=== PATIENT | female | born 1970 | race African-American/Black ===

== ENCOUNTER 2020-03-27 08:51 | Inpatient (IN) ==
[2020-04-02] MEDS ORDERED: VANCOMYCIN INJ 1,000 MG in SODIUM CHLORIDE 0.9% 250 ML IV ONE (06:00)
[2020-04-02] MEDS ORDERED: ceFAZolin 1,000 MG in SYRINGE 1 EACH IV ONE (06:00)
[2020-04-02] MEDS ORDERED: ACETAMINOPHEN 500 MG TABLET PO ONE (06:32)
[2020-04-02] MEDS ORDERED: GABAPENTIN 400 MG CAPSULE PO ONE (06:32)
[2020-04-02] MEDS ORDERED: DIAZEPAM 5 MG TABLET PO ONE (06:32)
[2020-04-02] MEDS ORDERED: FAMOTIDINE 20 MG TABLET PO ONE (06:32)
[2020-04-02] MEDS ORDERED: VANCOMYCIN 1,000 MG VIAL ONE (06:47)
[2020-04-02] MEDS ORDERED: ceFAZolin 1,000 MG VIAL ONE (06:49)
[2020-04-02] MEDS ORDERED: LACTATED RINGERS 1,000 ML IV SCH (07:00)
[2020-04-02] MEDS ORDERED: PHENYLEPHRINE 1 MG/10 ML SYRINGE IV ONE ×3 (07:24→09:56)
[2020-04-02] MEDS ORDERED: LIDOCAINE 2% 5 ML VIAL ONE (07:24)
[2020-04-02] MEDS ORDERED: SUCCINYLCHOLINE 200 MG/10 ML VIAL ONE (07:24)
[2020-04-02] MEDS ORDERED: propofoL 200 MG/20 ML VIAL IV ONE (07:24)
[2020-04-02] MEDS ORDERED: ROCURONIUM 50 MG/5 ML VIAL IV ONE (07:24)
[2020-04-02] MEDS ORDERED: MIDAZOLAM 2 MG/2 ML VIAL ONE (07:25)
[2020-04-02] MEDS ORDERED: fentaNYL 250 MCG/5 ML VIAL ONE (07:25)
[2020-04-02] MEDS ORDERED: TRANEXAMIC ACID 1,000 MG/10 ML VIAL ONE (07:28)
[2020-04-02] MEDS ORDERED: ROPIVACAINE 0.5% 30 ML VIAL ONE (07:33)
[2020-04-02] MEDS ORDERED: LIDOCAINE 1% 5 ML VIAL ONE (07:33)
[2020-04-02] MEDS ORDERED: DEXAMETHASONE 4 MG/1 ML VIAL ONE (07:33)
[2020-04-02] MEDS ORDERED: fentaNYL 100 MCG/2 ML VIAL ONE (09:31)
[2020-04-02] MEDS ORDERED: LACTATED RINGERS 1,000 ML IV ONE (09:35)
[2020-04-02] MEDS ORDERED: MAGNESIUM HYDROXIDE SUSP 30 ML UDCUP PO PRN (10:38)
[2020-04-02] MEDS ORDERED: LACTULOSE 20 GM/30 ML UDCUP PO PRN (10:38)
[2020-04-02] MEDS ORDERED: diphenhydrAMINE CAP 25 MG CAPSULE PO PRN (10:38)
[2020-04-02] MEDS ORDERED: BISACODYL 10 MG SUPP RECTAL PRN (10:38)
[2020-04-02] MEDS ORDERED: PROMETHAZINE 25 MG/1 ML VIAL IM PRN (10:38)
[2020-04-02] MEDS ORDERED: HYDROmorphone 2 MG/1 ML VIAL ONE (11:03)
[2020-04-02] MEDS: HYDROmorphone 2 MG/1 ML VIAL IV PRN ×3 (11:05→11:30)
[2020-04-02] MEDS ORDERED: ONDANSETRON 4 MG/2 ML VIAL IV PRN (11:18)
[2020-04-02] MEDS ORDERED: MEPERIDINE 25 MG/1 ML VIAL ONE (12:13)
[2020-04-02] MEDS ORDERED: MEPERIDINE 25 MG/1 ML VIAL IV PRN (12:20)
[2020-04-02] MEDS: oxyCODONE/ACETAMINOPHEN 5-325 MG TABLET PO PRN ×2 (14:26→23:25)
[2020-04-02] MEDS: PHENYTOIN ER 100 MG CAPSULE PO SCH ×3 (14:28→20:50)
[2020-04-02] MEDS: MORPHINE 4 MG/1 ML VIAL IV PRN ×2 (16:13→20:58)
[2020-04-02] MEDS: ceFAZolin 2,000 MG in PREMIX 1 EACH IV SCH ×2 (16:20→23:21)
[2020-04-02] MEDS: DULoxetine 30 MG CAPSULE PO SCH (20:49)
[2020-04-02] MEDS: DOCUSATE SODIUM 100 MG CAPSULE PO SCH (20:49)
[2020-04-02] MEDS: QUEtiapine 100 MG TABLET PO SCH (20:49)
[2020-04-03] MEDS: MORPHINE 4 MG/1 ML VIAL IV PRN ×3 (01:04→14:55)
[2020-04-03] MEDS: oxyCODONE/ACETAMINOPHEN 5-325 MG TABLET PO PRN ×4 (05:16→20:02)
[2020-04-03 07:53] LABS: Basophils % 0.4 % (0.0-0.8); Eosinophils # 0.3 10*3/uL (0.0-0.87); Eosinophils % 2.5 % (0.00-10.9); Hematocrit 28.7 VOL% (35.7-47.0); Hemoglobin 9.4 GM/DL (12.0-16.0); Immature Granulocytes % 0.4 %; Immature Granulocytes Absolute 0.04 #; Lymphocytes # 3.6 10*3/uL (1.4-4.0); Lymphocytes % 32.8 % (21.3-54.2); Mean Corpuscular HGB Conc 32.8 GM/DL (32-36); Mean Corpuscular Volume 87.5 FL (87-102); Mean Platelet Volume 9.5 FL (9.6-12.0); Monocytes % 10.6 % (1.7-12.7); Neutrophils % 53.3 % (38.7-73.9); Platelet Count 246 T/CUMM (130-400); Red Blood Count 3.28 MC/CUMM (3.8-5.5); Red Cell Distribution Width 12.8 % (9.3-17.3)
[2020-04-03 08:24] LABS: Calcium 8.4 MG/DL (8.5-10.1); Osmolality,Calculated 266.2 MOS/KG (273-304)
[2020-04-03] MEDS: DOCUSATE SODIUM 100 MG CAPSULE PO SCH ×2 (08:38→20:03)
[2020-04-03] MEDS: DULoxetine 30 MG CAPSULE PO SCH ×2 (08:38→20:03)
[2020-04-03] MEDS: PHENYTOIN ER 100 MG CAPSULE PO SCH ×4 (08:38→20:01)
[2020-04-03] MEDS: QUEtiapine 100 MG TABLET PO SCH (20:02)
[2020-04-03] MEDS: FONDAPARINUX 2.5 MG/0.5 ML SYRINGE SUBCUT SCH (20:06)
[2020-04-04] MEDS: MORPHINE 4 MG/1 ML VIAL IV PRN ×2 (00:11→05:26)
[2020-04-04] MEDS: oxyCODONE/ACETAMINOPHEN 5-325 MG TABLET PO PRN ×3 (03:12→13:14)
[2020-04-04] MEDS: DOCUSATE SODIUM 100 MG CAPSULE PO SCH (09:15)
[2020-04-04] MEDS: DULoxetine 30 MG CAPSULE PO SCH (09:15)
[2020-04-04] MEDS: PHENYTOIN ER 100 MG CAPSULE PO SCH ×2 (09:15→12:57)
[2020-04-04 11:30] VITALS: BP 137/64
[2020-04-04] MEDS: FONDAPARINUX 2.5 MG/0.5 ML SYRINGE SUBCUT SCH (11:40)
== END 2020-04-04 14:52 | disposition home health service (06) | DRG 470 ==
LOC: N.OR 08:51 → N.SDSINP 04-02 05:07 → N.OR 04-02 09:25 → N.SDSINP 04-02 09:25 → N.3E 04-02 13:17
PROVIDERS: ADMIT Orthopaedic Surgery; ATTEND Orthopaedic Surgery